=== PATIENT | male | born 1945 | race Caucasian/White ===

== ENCOUNTER 2017-06-19 13:10 | Day surgery (SDC) | payer OTHER ==
[2017-06-19] MEDS ORDERED: LIDOCAINE 1% 2 ML INJ ID PRN (13:18)
[2017-06-19] MEDS ORDERED: LR 1,000 ML IV ONE (13:18)
--- NOTE | 2017-06-19 13:25 | PDANEPAE ---
ANE History of Present Illness L temporal artery bx ANE Past Medical History - Cardiovascular History Hx Hypertension: Yes Hx Arrhythmias: Yes Hx CHF / Valvular Disease: Yes Hx Palpitations: No Cardiovascular History Comment: Afib,leaky valves - Pulmonary History Hx COPD: Yes Hx Asthma/Reactive Airway Disease: Yes Hx Recent Upper Respiratory Infection: Yes Hx Oxygen in Use at Home: Yes O2 in Use at Home (L/minute): 3L Continuous Hx Sleep Apnea: Yes Sleep Apnea Screening Result - Last Documented: Positive Pulmonary History Comment: emphysema,chronic broncitis - Neurologic History Hx Cerebrovascular Accident: Yes Hx Seizures: Yes Neurologic History Comment: multiple TIA'S - Endocrine History Hx Diabetes: Yes Endocrine History Comment: TYPE 11 - Renal History Hx Renal Disorders: Yes Renal History Comment: stage 3 kidney disease - Liver History Hx Hepatic Disorders: No - Neurological & Psychiatric Hx Hx Neurological and Psychiatric Disorders: Yes Neurological / Psychiatric History Comment: SEIZURES - Cancer History Hx Cancer: No - Congenital Disorder History Hx Congenital Disorders: No - GI History Hx Gastrointestinal Disorders: Yes Gastrointestinal History Comment: CONSTANT DIARHHEA - Other Health History Other Health History: VERY DRY SKIN,CATARACTS - Chronic Pain History Chronic Pain: Yes (NECK) ANE Review of Systems Review of Systems: - Exercise capacity METS (RN): 2 METS ANE Patient History - Allergies Allergies/Adverse Reactions: lisinopril Allergy (Intermediate, Verified 06/18/17 16:34) Other-Enter Comments buspirone Allergy (Mild, Verified 06/18/17 16:34) Other-Enter Comments methylphenidate [From Ritalin] Allergy (Verified 06/18/17 16:34) Other-Enter Comments Xcrkkdc-Acq-Ogu Reductase Inhibitor Allergy (Verified 06/18/17 16:34) Other-Enter Comments - Home Medications Home medications: home medication list seen and reviewed Home Medications: Acetaminophen 06/18/17 [Last Taken 2 Days Ago ~06/17/17] Allopurinol 06/18/17 [Last Taken 1 Day Ago ~06/18/17] Calcium 250+D Tablet 06/18/17 [Last Taken 1 Day Ago ~06/18/17] Carvedilol 06/18/17 [Last Taken 06/19/17 08:30] Citalopram 06/18/17 [Last Taken 1 Day Ago ~06/18/17] Donepezil HCl 06/18/17 [Last Taken 1 Day Ago ~06/18/17] Dynestra [place] 06/18/17 [Last Taken 1 Day Ago ~06/18/17] FOLBEE TABLET 06/18/17 [Last Taken 1 Day Ago ~06/18/17] Finasteride 06/18/17 [Last Taken 1 Day Ago ~06/18/17] Furosemide 06/18/17 [Last Taken 1 Day Ago ~06/18/17] Hydralazine HCl 06/18/17 [Last Taken 06/19/17 08:30] Losartan Potassium 06/18/17 [Last Taken 06/19/17 08:30] OXcarbazepine 06/18/17 [Last Taken 06/19/17 08:30] Sotalol 06/18/17 [Last Taken 06/19/17 08:30] Spiriva Inhaler (RX) 06/18/17 [Last Taken 1 Day Ago ~06/18/17] Symbicort 80-4.5 Mcg Inhaler 06/18/17 [Last Taken 06/19/17] Tamsulosin HCl 06/18/17 [Last Taken 1 Day Ago ~06/18/17] Xarelto 06/18/17 [Last Taken 06/18/17 09:00] Zetia 06/18/17 [Last Taken 1 Day Ago ~06/18/17] Zonisamide 06/18/17 [Last Taken 1 Day Ago ~06/18/17] Doxazosin Mesylate [Cardura 4 MG (*)] 06/19/17 [Last Taken 1 Day Ago ~06/18/17] Potassium Cl 06/19/17 [Last Taken 1 Day Ago ~06/18/17] predniSONE [Prednisone] 20 mg 06/19/17 [Last Taken 06/19/17] - Smoking Hx Smoking Status: Former smoker - Family Anes Hx Family Hx Anesthesia Complications: NONE ANE Labs/Vital Signs - Labs Result Diagrams: 06/19/17 13:45 06/19/17 13:45 - Vital Signs Height: 167.64 cm Weight: 95.254 kg ANE Physical Exam - Airway Neck exam: FROM Mallampati Score: Class 3 Mouth exam: normal dental/mouth exam - Pulmonary Pulmonary: no respiratory distress - Cardiovascular Cardiovascular: systolic murmur, irregularly irregular - ASA Status ASA Status: III
--- NOTE | 2017-06-19 13:39 | CPEKG ---
Heart Rate: 49 RR Interval: 1224 P-R Interval: 140 QRSD Interval: 100 QT Interval: 532 QTC Interval: 481 P [place]: 82 QRS [place]: -20 T Wave [place]: 22 EKG Severity - BORDERLINE ECG - EKG Impression: SINUS BRADYCARDIA EKG Impression: BORDERLINE LEFT AXIS DEVIATION EKG Impression: BORDERLINE PROLONGED QT INTERVAL Electronically Signed By: Álvaro Burrell 19-Jun-2017 15:35:51
[2017-06-19] MEDS ORDERED: NS 500 ML IV SCH (14:00)
--- NOTE | 2017-06-19 14:03 | PDHPUP ---
History & Physical Update H&P update statement: This history and physical update is based on an assessment of the patient which was completed after admission or registration (within 24 hours), but prior to the surgery/procedure. H&P update: H&P reviewed & patient examined, no change in patient's condition since H&P completed
[2017-06-19] MEDS ORDERED: MIDAZOLAM 2 MG/2 ML VIAL ONE (14:07)
[2017-06-19] MEDS ORDERED: MIDAZOLAM 2 MG/2 ML VIAL IVP ONE (14:11)
[2017-06-19] MEDS ORDERED: LIDO/EPI 1% **for epidural** 30 ML SDV ONE (14:13)
[2017-06-19] MEDS ORDERED: BACITRACIN ZINC 14.2 GM OINTTUBE TP ONE (14:13)
[2017-06-19] MEDS ORDERED: BUPIVACAINE 0.25% 30 ML SDV ONE (14:13)
[2017-06-19] MEDS ORDERED: ONDANSETRON 4 MG/2 ML VIAL ONE (14:41)
[2017-06-19] MEDS ORDERED: DEXAMETHASONE 4 MG/ML VIAL ONE (14:41)
[2017-06-19] MEDS ORDERED: LIDOCAINE 2% 100 MG/5 ML SYR ONE (14:41)
[2017-06-19] MEDS ORDERED: PROPOFOL 200 MG/20 ML VIAL ONE (14:42)
[2017-06-19] MEDS ORDERED: METHYLENE BLUE 0.5% 50 MG/10 ML AMP ONE (15:41)
[2017-06-19] MEDS ORDERED: NALOXONE HCL 0.4 MG/ML INJ IVP PRN (15:46)
[2017-06-19] MEDS ORDERED: MEPERIDINE 25 MG/ML SYR IVP PRN (15:46)
[2017-06-19] MEDS ORDERED: ACETAMINOPHEN 500 MG TAB PO PRN (15:46)
[2017-06-19] MEDS ORDERED: OXYCODONE/APAP 5/325 TAB PO PRN (15:46)
[2017-06-19] MEDS ORDERED: HYDROmorphONE/DILAUDID 1 MG/ML INJ IVP PRN (15:46)
[2017-06-19] MEDS ORDERED: ALBUTEROL 3 ML DEYVIAL IH PRN (15:46)
[2017-06-19] MEDS ORDERED: fentaNYL 100 MCG/2 ML INJ IVP PRN (15:46)
[2017-06-19] MEDS ORDERED: HYDROCODONE/APAP 5/325 TAB PO PRN (15:46)
[2017-06-19] MEDS ORDERED: PROMETHAZINE HCL 25 MG/ML INJ IVP PRN (15:46)
[2017-06-19] MEDS ORDERED: DEXAMETHASONE 4 MG/ML VIAL IVP PRN (15:46)
[2017-06-19] MEDS ORDERED: OFLOXACIN 0.3% 5ML OPHT DROPS ONE (16:45)
--- NOTE | 2017-06-19 17:14 | POSTOPPROG ---
Post Op Note Date of Operation: 06/19/17 Surgeon: Ben Pratt Anesthesiologist: Anesthesia: GET(General Endotracheal) Pre-op Diagnosis: Headache. B/L COME Post-op Diagnosis: Headache. B/L COME Indication: Headache. B/L COME Procedure: Left temporal artery biopsy. BMT Findings: Headache. B/L COME Inf/Abcess present in the surg proc area at time of surgery?: No Depth: Deep Incisional (Fascial) EBL: Minimal Complications: NONE Specimen(s): Left temporal vessel.
[2017-06-19 17:38] VITALS: TEMP 98.4
[2017-06-19 17:57] VITALS: PULSE 62; RESP 15
[2017-06-19 18:16] VITALS: BP 143/99; O2SAT 94
--- NOTE | 2017-06-19 20:15 | GOP ---
[f rep st] OPERATIVE REPORT DATE OF OPERATION: 06/19/2017 SURGEON: Ben Pratt MD ANESTHESIA: General. PREOPERATIVE DIAGNOSIS: 1. Headache. 2. Bilateral chronic otitis media with effusion. POSTOPERATIVE DIAGNOSIS: 1. Headache. 2. Bilateral chronic otitis media with effusion. PROCEDURE PERFORMED: 1. Left temporal artery biopsy. 2. Bilateral myringotomy with tube. FINDINGS: Bilateral retracted eardrums. Small vessel consistent with artery found just posterior to prior craniotomy scar. SPECIMENS: Left temporal vessel. ESTIMATED BLOOD LOSS: Minimal. DESCRIPTION OF PROCEDURE: Patient was brought to the operating room by Anesthesiology and placed on the operating table. Once appropriate level of anesthesia was achieved, the patient was prepped and draped in usual fashion for the left temporal artery biopsy. A Doppler ultrasound was used to locali ze vessels in the left temporal region. This was complicated by a wide/thick craniotomy scar that ex tended through the surgical site. After continued use of the Doppler, a signal was found superior an d posterior to the left temporal craniotomy scar. This was marked. His incision was made over the m arked site with a 15 blade. Subcutaneous dissection continued with Bovie electrocautery and blunt di ssection. A small vessel was localized and traced superiorly. The inferior aspect was ligated and c auterized. Superiorly as it was traced, 2 branches were then clipped with a small clip digital production operator and l igated. This was handed off for permanent section. There was good hemostasis with this. The surgic al site was further explored for other vessels. None were found. The site was irrigated with copiou s normal saline. The site was then inspected for bleeding. None was found. A 4-0 chromic suture wa s used in an interrupted deep fashion to reapproximate subcutaneous soft tissues. A 5-0 Monocryl was used in a running subcuticular fashion. Bacitracin was placed over top. The patient tolerated this portion of the procedure well. The patient was re prepped and draped for the bilateral myringotomy with tube. Patient's head was 1s t turned to the right and the left tube was inspected under binocular microscopy. A 4-0 speculum was placed atraumatically within the ear canal. A mild amount of cerumen was removed. A myringotomy bl jodie was used to create a radial inferior incision as the anterior portion of the TM was not accessibl e. A silicone grommet was then placed and found to be in good position under binocular microscopy. Ofloxacin drops were infused into the ear canal, the speculum was removed, and a cotton ball was plac ed. The patient's head was then turned to the left and the right ear was inspected under binocular m icroscopy. A 4-0 speculum was placed atraumatically in the ear canal. A mild amount of cerumen was removed with a curette. A myringotomy incision was placed in the inferior portion of the TM in a rad ial fashion. A silicon grommet was then placed and found to be in good position under binocular micr oscopy. Ear drops were infused into the ear canal, the speculum was removed, and a cotton ball was p laced. The patient tolerated these procedures well and was extubated in the operating room prior to being transferred in good condition to the postanesthesia care unit. COMPLICATIONS: None. OPERATIVE INDICATIONS: Patient was seen in outpatient clinic and found to have had a history consist ent with temporal arteritis. In order to obtain a definitive diagnosis, he was determined to be an a ppropriate candidate for left temporal artery biopsy. The risks, benefits, alternatives to this proc edure were explained at length to the patient who stated he understood and agreed. As well, the anant ent had a long history of eustachian tube dysfunction bilaterally with chronic otitis media. Given h is history and findings, he was determined to be an appropriate candidate for the bilateral myringoto my with tubes. The risks, benefits, and alternatives to the procedure were explained at length to e patient who stated he understood and wished to go forward with the procedure. /[id number]/MODL
== END 2017-06-19 18:39 | disposition home or self-care (01) ==
LOC: FSGY 13:10
PROVIDERS: ATTEND Otolaryngology
DX: R51 Headache (principal); H69.83 Other specified disorders of Eustachian tube, bilateral; H65.23 Chronic serous otitis media, bilateral; J34.89 Other specified disorders of nose and nasal sinuses; J34.3 Hypertrophy of nasal turbinates; J34.2 Deviated nasal septum; I48.91 Unspecified atrial fibrillation; J44.9 Chronic obstructive pulmonary disease, unspecified; E11.9 Type 2 diabetes mellitus without complications; M10.9 Gout, unspecified; E78.5 Hyperlipidemia, unspecified; I10 Essential (primary) hypertension; G47.33 Obstructive sleep apnea (adult) (pediatric); Z79.01 Long term (current) use of anticoagulants; Z87.891 Personal history of nicotine dependence; Z86.73 Personal history of transient ischemic attack (TIA), and cerebral infarction without residual deficits
CPT/HCPCS: J0171; J1100; J2001; J2250; J2405; J2704; Q9968

== ENCOUNTER 2017-08-29 08:13 | Day surgery (SDC) | payer OTHER ==
[2017-08-29] MEDS ORDERED: NS 1,000 ML IV ONE (08:18)
[2017-08-29] MEDS ORDERED: diphenhydrAMINE 25 MG CAP PO ONE (08:18)
[2017-08-29] MEDS ORDERED: DIAZEPAM 5 MG TAB PO ONE (08:18)
[2017-08-29] MEDS ORDERED: ASPIRIN EC 325 MG TAB PO ONE (08:18)
[2017-08-29] MEDS ORDERED: FAMOTIDINE 20 MG TAB PO ONE (08:18)
--- NOTE | 2017-08-29 08:44 | CPEKG ---
Heart Rate: 57 RR Interval: 1053 P-R Interval: 176 QRSD Interval: 134 QT Interval: 476 QTC Interval: 464 P [place]: 49 QRS [place]: -37 T Wave [place]: 24 EKG Severity - ABNORMAL ECG - EKG Impression: SINUS RHYTHM EKG Impression: RBBB AND LAFB EKG Impression: RBBB IS NEW IN COMPARISON TO PRIOR ECG Electronically Signed By: Flakito Saba 29-Aug-2017 22:56:33
[2017-08-29 09:05] LABS: PLATELET COUNT 178 10^3/uL (150-400)
[2017-08-29 09:13] LABS: INR 0.95 (0.83-1.16); PROTIME(PATIENT) 12.9 SEC (12.0-15.0)
[2017-08-29] MEDS ORDERED: LIDOCAINE 1% 300 MG/30 ML SDV ONE (09:28)
[2017-08-29] MEDS ORDERED: MIDAZOLAM 2 MG/2 ML VIAL ONE (09:28)
[2017-08-29] MEDS ORDERED: IOPAMIDOL (ISOVUE-370) 150 ML BTL IV ONE (09:28)
[2017-08-29] MEDS ORDERED: fentaNYL 100 MCG/2 ML INJ ONE (09:28)
--- NOTE | 2017-08-29 09:46 | PDPROPOC ---
Sedation Plan of Care Sedation Plan of Care: vital signs stable, mental status noted, patient educated of risks, benefits, alternatives, patient can tolerate sedation ASA Classification: ASA 2 Planned drugs: fentanyl, midazolam Mallampati Score: Class 2 Mallampati Reference Image: Patient passed 3-3-2 rule?: Yes
[2017-08-29] MEDS ORDERED: HYDROCODONE/APAP 5/325 TAB PO PRN (10:46)
[2017-08-29] MEDS ORDERED: NITROGLYCERIN 0.4 MG BTL SL PRN (10:46)
[2017-08-29] MEDS ORDERED: ONDANSETRON 4 MG/2 ML VIAL IVP PRN (10:46)
[2017-08-29] MEDS ORDERED: ATROPINE SULFATE 1 MG/10 ML SYR IVP PRN (10:46)
--- NOTE | 2017-08-29 10:57 | PDDXCAT ---
Diagnostic Cath Note - . Date: 08/29/17 Air Conditioning Service Technician: Bentley Indication: other (Risk factors for CAD, h/o PVD, chronic diastolic CHF, and chronic cor pulmonale.) - Procedure Access: right groin Procedure: left heart catheterization, coronary angiography, right heart catheterization - Materials Left Heart Cath size: 6F Left Heart Cath materials: standard multipack (JL4, JR4, pigtail) Right Heart Cath size: 7F Right Heart Cath materials: PWP catheter - Findings-Left Heart Catheterization LM: Flouroscopy reveals the presence of calcification along the course of the left main. Angiography demonstrates mild distal tapering of less than 30%. LAD: Flouroscopy reveals presence of calcification of the proximal to mid-LAD. Angiography demonstrates diffuse mild to moderate disease with an area up to 50 % in the mid-LAD. The principal diagonal branch also has mild to moderate disease. LCX: The circumflex and its obtuse marginal branches demonstrate mild to moderate irregularities. RCA: Fluoroscopy demonstrates calcification from the proximal to distal RCA. There is diffuse ectasia with mild to moderate irregularities. EDP: 24 mmHg LVEF: No LV-gram secondary to chronic kidney disease. 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 2) Mild pulmonary hypertension.
[2017-08-29 13:46] VITALS: BP 137/71
== END 2017-08-29 14:15 | disposition home or self-care (01) ==
LOC: FCATH 08:13
PROVIDERS: ATTEND Internal Medicine Interventional Cardiology
PROC: 4A023N8 Measurement of Cardiac Sampling and Pressure, Bilateral, Percutaneous Approach (ICD-10-PCS; principal; 2017-08-29)
PROC: B2111ZZ Fluoroscopy of Multiple Coronary Arteries using Low Osmolar Contrast (ICD-10-PCS; principal; 2017-08-29)
PROC: B2151ZZ Fluoroscopy of Left Heart using Low Osmolar Contrast (ICD-10-PCS; principal; 2017-08-29)
DX: I25.10 Atherosclerotic heart disease of native coronary artery without angina pectoris (principal); I27.20 Pulmonary hypertension, unspecified; I50.32 Chronic diastolic (congestive) heart failure; I27.81 Cor pulmonale (chronic); I73.9 Peripheral vascular disease, unspecified; I48.0 Paroxysmal atrial fibrillation; I35.1 Nonrheumatic aortic (valve) insufficiency; N18.3 Chronic kidney disease, stage 3 (moderate); I13.0 Hypertensive heart and chronic kidney disease with heart failure and stage 1 through stage 4 chronic kidney disease, or unspecified chronic kidney disease; E78.00 Pure hypercholesterolemia, unspecified; I45.19 Other right bundle-branch block; I77.9 Disorder of arteries and arterioles, unspecified; I71.2 Thoracic aortic aneurysm, without rupture; I71.4 Abdominal aortic aneurysm, without rupture; J44.9 Chronic obstructive pulmonary disease, unspecified; E11.22 Type 2 diabetes mellitus with diabetic chronic kidney disease; F32.9 Major depressive disorder, single episode, unspecified; M10.9 Gout, unspecified; G47.33 Obstructive sleep apnea (adult) (pediatric); G40.909 Epilepsy, unspecified, not intractable, without status epilepticus; Z79.01 Long term (current) use of anticoagulants; Z87.442 Personal history of urinary calculi; Z86.73 Personal history of transient ischemic attack (TIA), and cerebral infarction without residual deficits; Z87.891 Personal history of nicotine dependence; Z82.49 Family history of ischemic heart disease and other diseases of the circulatory system; Z82.3 Family history of stroke; Z99.81 Dependence on supplemental oxygen
CPT/HCPCS: C1760; J1644; J2250; J3010; Q9967

== ENCOUNTER 2018-04-02 09:19 | Day surgery (SDC) | payer OTHER ==
[2018-04-02] MEDS ORDERED: fentaNYL 100 MCG/2 ML INJ IVP ONE (09:24)
[2018-04-02] MEDS ORDERED: MIDAZOLAM 2 MG/2 ML VIAL IVP ONE (09:24)
[2018-04-02] MEDS ORDERED: NS 500 ML IV ONE (09:24)
[2018-04-02] MEDS ORDERED: ATROPINE SULFATE 1 MG/10 ML SYR IVP ONE (09:24)
[2018-04-02 10:06] LABS: INR 1.66 (0.83-1.16); PROTIME(PATIENT) 19.7 SEC (12.0-15.0)
--- NOTE | 2018-04-02 10:44 | PDANEPAE ---
ANE History of Present Illness here for CV ANE Past Medical History - Cardiovascular History Hx Hypertension: Yes Hx Arrhythmias: Yes Hx CHF / Valvular Disease: Yes Hx Palpitations: No Cardiovascular History Comment: Afib,leaky valves - Pulmonary History Hx COPD: Yes Hx Asthma/Reactive Airway Disease: Yes Hx Recent Upper Respiratory Infection: Yes Hx Oxygen in Use at Home: Yes Hx Sleep Apnea: Yes Pulmonary History Comment: emphysema,chronic broncitis - Neurologic History Hx Cerebrovascular Accident: Yes Hx Seizures: Yes Neurologic History Comment: multiple TIA'S - Endocrine History Hx Diabetes: Yes Endocrine History Comment: TYPE 11 - Renal History Hx Renal Disorders: Yes Renal History Comment: stage 3 kidney disease - Liver History Hx Hepatic Disorders: No - Neurological & Psychiatric Hx Hx Neurological and Psychiatric Disorders: Yes Neurological / Psychiatric History Comment: SEIZURES - Cancer History Hx Cancer: No - Congenital Disorder History Hx Congenital Disorders: No - GI History Hx Gastrointestinal Disorders: Yes Gastrointestinal History Comment: CONSTANT DIARHHEA - Other Health History Other Health History: VERY DRY SKIN,CATARACTS - Chronic Pain History Chronic Pain: Yes (NECK) ANE Review of Systems Review of systems is: negative Review of Systems: ANE Patient History - Allergies Allergies/Adverse Reactions: lisinopril Allergy (Intermediate, Verified 06/18/17 16:34) Other-Enter Comments buspirone Allergy (Mild, Verified 06/18/17 16:34) Other-Enter Comments amlodipine [From Norvasc] Allergy (Verified 08/26/17 11:32) methylphenidate [From Ritalin] Allergy (Verified 06/18/17 16:34) Other-Enter Comments Kliutip-Sov-Kli Reductase Inhibitor Allergy (Verified 06/18/17 16:34) Other-Enter Comments - Home Medications Home Medications: Acetaminophen [Tylenol 325mg (*)] 325 mg PO Q6 PRN #0 06/18/17 [Last Taken 2 Days Ago ~06/17/17] Allopurinol [Allopurinol 100 MG (*)] 100 mg PO DAILY #0 06/18/17 [Last Taken 12:00] Budesonide/Formoterol 160/4.5 [Symbicort 160-4.5 Mcg Inh (*)] 1 puffs IH BID #0 06/18/17 [Last Taken 08/28/17 21:00] Carvedilol [Coreg (*)] 25 mg PO BIDMEAL #0 06/18/17 [Last Taken 08/29/17 07:00] Citalopram [CeleXA 20 MG] 20 mg PO DAILY #0 06/18/17 [Last Taken 08/28/17 21:00] Cyanocobalamin/Folic AC/Vit B6 [FOLBEE TABLET] 2 each PO DAILY #0 06/18/17 [ Last Taken 08/28/17 12:00] Finasteride [Proscar 5 MG (*)] 5 mg PO HS #0 06/18/17 [Last Taken 08/28/17 21:00 ] Herbals/Supplements -Info Only 1 ea PO DAILY #0 06/18/17 [Last Taken 1 Day Ago ~ 06/18/17] Losartan Potassium [Cozaar 25 mg (*)] 25 mg PO DAILY #0 06/18/17 [Last Taken 07:00] OXcarbazepine [Trileptal 300mg (*)] 300 mg PO DAILY #0 06/18/17 [Last Taken 07:00] Rivaroxaban [Xarelto 15mg (*)] 15 mg PO HS #0 06/18/17 [Last Taken 08/26/17 08: 00] Sotalol HCl [SOTALOL] 120 mg PO BID #0 06/18/17 [Last Taken 08/29/17 07:00] Tiotropium Inhaler [Spiriva Inhaler (RX)] 1 puffs IH DAILY@12 #0 06/18/17 [Last Taken 08/28/17 12:00] Doxazosin Mesylate [Cardura 4 MG (*)] 8 mg PO HS 06/19/17 [Last Taken 08/28/17 12:00] Potassium Cl [Klor-Con 10 meq (RX)] 30 meq PO BID #0 06/19/17 [Last Taken 07:00] Albuterol [Proventil Inhaler HFA (*)] 1 - 2 puffs IH Q4H PRN 08/26/17 [Last Taken Unknown] Aristocort Cream 1 davis TP DAILY PRN 08/26/17 [Last Taken Unknown] Clotrimazole 1% [Lotrimin 1%] 1 davis TP DAILY PRN 08/26/17 [Last Taken Unknown] Desonide 0.05% [Desonide 0.05% Cream (*)] 1 davis TP TID PRN 08/26/17 [Last Taken Unknown] Ketoconazole 2% [Nizoral 2% Cream (*)] 1 davis TP DAILY PRN 08/26/17 [Last Taken Unknown] OXcarbazepine [Trileptal 300mg (*)] 600 mg PO HS 08/26/17 [Last Taken 08/28/17 21:00] Alirocumab [Praluent Pen] 75 mg SQ Q14D 03/29/18 [Last Taken Unknown] Furosemide [Lasix 80 MG (*)] 40 mg PO DAILY@12 03/29/18 [Last Taken Unknown] Furosemide [Lasix 80 MG (*)] 80 mg PO DAILY 03/29/18 [Last Taken Unknown] - Smoking Hx Smoking Status: Former smoker - Family Anes Hx Family Hx Anesthesia Complications: NONE ANE Labs/Vital Signs - Labs Result Diagrams: 04/02/18 09:45 - Vital Signs Vital Signs: reviewed preoperatively; see RN documention for details ANE Physical Exam - Airway Neck exam: FROM Mallampati Score: Class 1 - Pulmonary Pulmonary: no respiratory distress - Cardiovascular Cardiovascular: irregularly irregular - ASA Status ASA Status: III ANE Anesthesia Plan Anesthesia Plan: GA with mask
[2018-04-02] MEDS ORDERED: PROPOFOL 200 MG/20 ML VIAL ONE (11:06)
--- NOTE | 2018-04-02 15:33 | CPEKG ---
Test Reason : OPEN Blood Pressure : / mmHG Vent. Rate : 114 BPM Atrial Rate : 112 BPM P-R Int : 138 ms QRS Dur : 133 ms QT Int : 385 ms P-R-T Axes : 000 -56 -47 degrees QTc Int : 531 ms Atrial fibrillation -- New since August 29, 2017 RBBB and LAFB Confirmed by Ben Landeros ([id number]) on 04/02/2018 3:33:00 PM Referred By: Confirmed By:Ben Landeros
--- NOTE | 2018-04-02 15:36 | CPEKG ---
Test Reason : OPEN Blood Pressure : / mmHG Vent. Rate : 052 BPM Atrial Rate : 051 BPM P-R Int : 177 ms QRS Dur : 090 ms QT Int : 517 ms P-R-T Axes : 000 -33 -77 degrees QTc Int : 481 ms Sinus rhythm-- Restored since April 02, 2018, 09:41 Resolution of right bundle branch block since April 02, 2018, 09:41 Atrial premature complex Left axis deviation Abnormal T, consider ischemia, diffuse leads -- More pronounced since April 02, 2018, 09:41 Confirmed by Ben Landeros ([id number]) on 04/02/2018 3:36:03 PM Referred By: Confirmed By:Ben Landeros
--- NOTE | 2018-04-02 15:37 | POSTANESTH ---
Post Anesthetic Evaluation Cardiovascular Status: Normal, Stable Respiratory Status: Normal, Stable Level of Consciousness/Mental Status: Can Participate in Eval Pain Control: Adequate, Prn Tx Ordered Nausea/Vomiting Control: Adequate, Prn Tx Ordered Complications Possibly Related to Anesthesia: None Noted
== END 2018-04-02 15:38 | disposition home or self-care (01) ==
LOC: FCATH 09:19
PROVIDERS: ATTEND Internal Medicine Interventional Cardiology
PROC: 5A2204Z Restoration of Cardiac Rhythm, Single (ICD-10-PCS; principal; 2018-04-02)
DX: I48.0 Paroxysmal atrial fibrillation (principal); I50.32 Chronic diastolic (congestive) heart failure; I27.81 Cor pulmonale (chronic); I35.1 Nonrheumatic aortic (valve) insufficiency; E78.00 Pure hypercholesterolemia, unspecified; I25.10 Atherosclerotic heart disease of native coronary artery without angina pectoris; N18.3 Chronic kidney disease, stage 3 (moderate); I13.0 Hypertensive heart and chronic kidney disease with heart failure and stage 1 through stage 4 chronic kidney disease, or unspecified chronic kidney disease; J44.9 Chronic obstructive pulmonary disease, unspecified; E11.22 Type 2 diabetes mellitus with diabetic chronic kidney disease; M10.9 Gout, unspecified; G47.33 Obstructive sleep apnea (adult) (pediatric); I45.10 Unspecified right bundle-branch block; Z79.01 Long term (current) use of anticoagulants; Z86.73 Personal history of transient ischemic attack (TIA), and cerebral infarction without residual deficits; Z87.891 Personal history of nicotine dependence; Z87.442 Personal history of urinary calculi; Z86.718 Personal history of other venous thrombosis and embolism; Z82.49 Family history of ischemic heart disease and other diseases of the circulatory system; Z66 Do not resuscitate
CPT/HCPCS: J2704